=== PATIENT | female | born 2000 | race African-American/Black ===

== ENCOUNTER 2018-02-07 22:07 | Emergency (ER) | payer MEDICAID, OTHER ==
[~2018-02-07] VITALS: Ht 154.9 cm; Wt 52.0 kg
[2018-02-08 00:41] VITALS: BP 111/56
== END 2018-02-08 00:42 | disposition home or self-care (01) ==
LOC: ER 22:07
DX: R05 Cough (principal); D69.3 Immune thrombocytopenic purpura; J06.9 Acute upper respiratory infection, unspecified; Z88.8 Allergy status to other drugs, medicaments and biological substances
CPT/HCPCS: 71045; 81025; 93005; 99283